=== PATIENT | female | born 1965 | race African-American/Black ===

== ENCOUNTER 2018-02-23 10:06 | Emergency (ER) | payer BC ==
[2018-02-23] MEDS ORDERED: Acetaminophen 500 MG TAB ONE (11:06)
[2018-02-23] MEDS ORDERED: diphenhydrAMINE 50 MG/ML VIAL ONE (11:06)
[2018-02-23 11:07] LABS: Hemoglobin 13.5 g/dL (12.0-16.0); Mean Corpuscular HGB CONC 32.1 g/dL (32.0-36.0); Mean Corpuscular Hemoglobin 27.2 pg (27.0-31.0); Mean Corpuscular Volume 84.8 fl (81.0-99.0); Mean Platelet Volume 7.8 fL (7.4-10.4); Platelet Count 283 thou/uL (130-400); RBC Distribution Width 13.3 % (11.5-14.5); Red Blood Cell (RBC) Count 4.94 mill/uL (4.20-5.40); White Blood Cell (WBC) Count 8.8 thou/uL (4.8-10.8)
[2018-02-23] MEDS ORDERED: Metoclopramide HCl 10 MG/2 ML VIAL ONE (11:11)
--- NOTE | 2018-02-23 11:27 | CT ---
CT HEAD WITHOUT CONTRAST: 02/23/2018 HISTORY: Pain. TECHNIQUE: Serial axial CT imaging is obtained at 5 mm intervals, from the vertex through the skull base, withou t contrast. FINDINGS: There is a probable old fracture of the right medial orbital wall. There is no displaced calvarial f racture seen. No intracranial hemorrhage, midline shift, mass effect, or ventricular enlargement. IMPRESSION: No acute findings. POS: JO[facility]
[2018-02-23 11:28] LABS: ALT (SGPT) 22 U/L (8-55); AST (SGOT) 19 U/L (5-34); Albumin 4.1 g/dL (3.5-5.0); Alkaline Phosphatase 98 U/L (40-150); Anion Gap 11 mmol/L (10-20); BUN (Urea Nitrogen) 10 mg/dL (9.8-20.1); Bilirubin, Total 0.5 mg/dL (0.2-1.2); Calc. Creatinine Clearance 0 mL/min (70-130); Calcium 9.6 mg/dL (7.8-10.44); Carbon Dioxide 24 mmol/L (22-29); Chloride 108 mmol/L (98-107); Estimated GFR-MDRD Greater than 90; Globulin 3.6 g/dL (2.4-3.5); Glucose 93 mg/dL (70-105); Potassium 4.1 mmol/L (3.5-5.1); Protein, Total 7.7 g/dL (6.0-8.3); Sodium 139 mmol/L (136-145)
[2018-02-23 11:33] LABS: Band 1 % (5-11); Lymphocytes 30 % (21-51); MDiff Complete? YES; Monocytes 2 % (0-10); Neutrophil 66 % (42-75); PLT Morphology Comment Appears Adequate; Reactive Lymphocytes 1 % (0-10); Target Cells SLIGHT = 2-5 cells (100X) (0-1/hpf)
[2018-02-23] MEDS ORDERED: Ketorolac Tromethamine 30 MG/ML VIAL ONE (11:59)
[2018-02-23 13:45] LABS: Bilirubin Negative (Negative); Blood, Urine Negative (Negative); Clarity CLEAR (Clear); Glucose, Urine (Dipstick) Negative (Negative); Leukocyte Negative (Negative); Nitrite Negative (Negative); Protein, Urine (Dipstick) Negative (Neg-Trace); Specific Gravity, Urine 1.013 (1.002-1.036)
== END 2018-02-23 13:34 | disposition home or self-care (01) ==
LOC: ERS 10:06
DX: R51 Headache (principal); I10 Essential (primary) hypertension; F17.210 Nicotine dependence, cigarettes, uncomplicated; Z71.6 Tobacco abuse counseling
CPT/HCPCS: 36415; 70450; 80053; 81003; 85025; 96365; 96375; 99406; J1200; J1885; J2765

== ENCOUNTER 2019-03-13 08:05 | Emergency (ER) | payer BC, SELFPAY ==
--- NOTE | 2019-03-13 08:37 | RAD ---
XR Chest Pa Lat STANDARD HISTORY: Chest pain COMPARISON: 12/23/2016 FINDINGS: The heart size is normal. The aorta is tortuous. The lungs are well expanded without focal areas of consolidation, pneumothoraces or pleural effusions. No acute osseous abnormalities are seen. IMPRESSION: No radiographic evidence of acute cardiopulmonary process.
[2019-03-13 09:09] LABS: Mean Corpuscular HGB CONC 31.9 g/dL (32.0-36.0); Mean Corpuscular Hemoglobin 27.2 pg (27.0-31.0); Mean Corpuscular Volume 85.3 fL (78.0-98.0); Mean Platelet Volume 8.2 fL (7.4-10.4); Platelet Count 256 thou/uL (130-400); RBC Distribution Width 13.4 % (11.5-14.5); Red Blood Cell (RBC) Count 4.79 mill/uL (4.20-5.40); White Blood Cell (WBC) Count 7.3 thou/uL (4.8-10.8)
[2019-03-13 09:19] LABS: Band 1 % (5-11); Eosinophils 3 % (0-10); Lymphocytes 37 % (21-51); MDiff Complete? YES; Monocytes 6 % (0-10); Neutrophil 53 % (42-75); Platelet Morphology Comment Appears Adequate; Polychromasia SLIGHT = 2-3 cells (100X) (0-2/hpf)
[2019-03-13] MEDS ORDERED: Amlodipine 5 MG TAB ONE (09:22)
[2019-03-13 09:23] LABS: ALT (SGPT) 21 U/L (8-55); AST (SGOT) 18 U/L (5-34); Albumin 3.8 g/dL (3.5-5.0); Alkaline Phosphatase 103 U/L (40-150); Anion Gap 11 mmol/L (10-20); BUN (Urea Nitrogen) 10 mg/dL (9.8-20.1); Bilirubin, Total 0.3 mg/dL (0.2-1.2); Calc. Creatinine Clearance 0 mL/min (70-130); Calcium 8.8 mg/dL (7.8-10.44); Carbon Dioxide 24 mmol/L (22-29); Chloride 109 mmol/L (98-107); Estimated GFR-MDRD Greater than 90; Globulin 2.8 g/dL (2.4-3.5); Glucose 94 mg/dL (70-105); Potassium 3.9 mmol/L (3.5-5.1); Protein, Total 6.6 g/dL (6.0-8.3); Sodium 140 mmol/L (136-145)
[2019-03-13 11:01] LABS: Bilirubin Negative (Negative); Blood, Urine Negative (Negative); Clarity CLOUDY (Clear); Glucose, Urine (Dipstick) Negative (Negative); Leukocyte Negative (Negative); Nitrite Negative (Negative); Protein, Urine (Dipstick) Negative (Neg-Trace); Specific Gravity, Urine 1.013 (1.002-1.036); pH, Urine 6.5 (5.0-9.0)
[2019-03-13] MEDS ORDERED: Ketorolac Tromethamine 30 MG/ML VIAL ONE (11:30)
== END 2019-03-13 11:48 | disposition home or self-care (01) ==
LOC: ERS 08:05
DX: I10 Essential (primary) hypertension (principal); F17.210 Nicotine dependence, cigarettes, uncomplicated
CPT/HCPCS: 36415; 71046; 80053; 81003; 84484; 85025; 93005; 96374; J1885

== ENCOUNTER 2019-05-18 10:36 | Outpatient (CLI) | payer OTHER ==
--- NOTE | 2019-05-18 11:08 | RAD ---
LUMBAR SPINE TWO VIEWS: HISTORY: Disability examination. TECHNIQUE: AP and lateral standing weightbearing views of the lumbar spine are performed. FINDINGS: Mild levoscoliosis. Generalized disk osteophytosis and facet arthrosis. Overall stable from prior s tudy. IMPRESSION: Lumbar spondylosis with mild levoscoliosis. POS: C
--- NOTE | 2019-05-18 11:09 | RAD ---
RADIOGRAPH RIGHT HIP TWO VIEWS: 05/18/2019 HISTORY: A 53-year-old female with right hip pain. Disability examination. FINDINGS: The right hip joint space is maintained. The femoral head contour is normal. No subcapital or aceta bular osteophytes. No destructive osseous lesion. No fracture. IMPRESSION: Normal. POS: [facility]
== END 2019-05-18 10:37 | disposition home or self-care (01) ==
LOC: BICRAD 10:36
PROVIDERS: ATTEND Internal Medicine
DX: Z02.71 Encounter for disability determination (principal); M47.816 Spondylosis without myelopathy or radiculopathy, lumbar region; M41.9 Scoliosis, unspecified
CPT/HCPCS: 72100

== ENCOUNTER 2020-01-17 09:44 | Emergency (ER) | payer SELFPAY ==
[2020-01-17] MEDS ORDERED: Metoclopramide HCl 10 MG/2 ML VIAL ONE (10:51)
[2020-01-17] MEDS ORDERED: Metoclopramide 10 MG/10 ML UDCUP ONE (10:51)
[2020-01-17] MEDS ORDERED: Ketorolac Tromethamine 30 MG/ML VIAL ONE (10:51)
== END 2020-01-17 13:05 | disposition home or self-care (01) ==
LOC: ERS 09:44
DX: R51 Headache (principal); I10 Essential (primary) hypertension; E11.9 Type 2 diabetes mellitus without complications; F17.210 Nicotine dependence, cigarettes, uncomplicated; F32.9 Major depressive disorder, single episode, unspecified; Z79.84 Long term (current) use of oral hypoglycemic drugs; Z79.899 Other long term (current) drug therapy
CPT/HCPCS: 36416; 96365; 96375; J1885; J2765

== ENCOUNTER 2021-03-09 14:10 | Observation (INO) | payer MEDICARE, SELFPAY ==
[2021-03-09] MEDS ORDERED: Ondansetron PF 4 MG/2 ML Vial ONE ×2 (14:37→15:42)
[2021-03-09] MEDS ORDERED: Iopamidol-370 76% 500 ML 1 ML ONE (14:47)
[2021-03-09 15:00] LABS: #Basophils 0.1 thou/uL (0.0-0.2); #Eosinphils 0.2 thou/uL (0.0-0.7); #Lymphocytes 5.2 thou/uL (1.20-3.40); #Monocytes 0.8 thou/uL (0.11-0.59); #Neutrophils 5.7 thou/uL (1.40-6.50); %Basophils 0.5 % (0.0-1.0); %Eosinophils 1.5 % (0.0-10.0); %Lymphocytes 43.5 % (21.0-51.0); %Monocytes 6.3 % (0.0-10.0); %Neutrophils 48.2 % (42.0-75.0); Mean Corpuscular HGB CONC 31.6 g/dL (32.0-36.0); Mean Corpuscular Hemoglobin 26.7 pg (27.0-31.0); Mean Corpuscular Volume 84.5 fL (78.0-98.0); Mean Platelet Volume 8.2 fL (7.4-10.4); Platelet Count 321 thou/uL (130-400); RBC Distribution Width 13.6 % (11.5-14.5); Red Blood Cell (RBC) Count 4.87 mill/uL (4.20-5.40); White Blood Cell (WBC) Count 11.8 thou/uL (4.8-10.8)
[2021-03-09 15:17] LABS: ALT (SGPT) 20 U/L (8-55); AST (SGOT) 18 U/L (5-34); Alkaline Phosphatase 122 U/L (40-110); Anion Gap 14 mmol/L (10-20); BUN (Urea Nitrogen) 9 mg/dL (9.8-20.1); Bilirubin, Total 0.5 mg/dL (0.2-1.2); Calc. Creatinine Clearance 0 mL/min (70-130); Carbon Dioxide 21 mmol/L (22-29); Chloride 109 mmol/L (98-107); Globulin 3.8 g/dL (2.4-3.5); Glucose 137 mg/dL (70-105); Potassium 3.4 mmol/L (3.5-5.1); Protein, Total 7.8 g/dL (6.0-8.3); Sodium 141 mmol/L (136-145)
[2021-03-09] MEDS ORDERED: Magnesium 2 GM/50 ML BAG (IN WATER) ONE (15:39)
[2021-03-09] MEDS ORDERED: Ketorolac Tromethamine 30 MG/ML VIAL ONE (15:39)
[2021-03-09] MEDS ORDERED: Prochlorperazine Maleate 5 MG TAB ONE (15:39)
[2021-03-09 15:48] LABS: Bilirubin Negative (Negative); Blood, Urine Negative (Negative); Clarity Clear (Clear); Glucose, Urine (Dipstick) Normal (Negative); Ketone, Urine Negative (Negative); Leukocyte Negative Leu/uL (Negative); Nitrite Negative (Negative); Protein, Urine (Dipstick) Negative (Neg-Trace); Urobilinogen Normal mg/dL (Less than 2); pH, Urine 6.5 (5.0-9.0)
[2021-03-09 15:50] LABS: Specific Gravity, Urine 1.052 (1.002-1.036)
[2021-03-09 15:53] LABS: Amphetamine Not Detected (NotDetected); Barbiturates Screen Not Detected (NotDetected); Benzodiazepine Screen Not Detected (NotDetected); Cocaine Metabolite Screen Not Detected (NotDetected); Medtox Control Line Valid? VALID (VALID); Medtox Reader # READER 4; Methadone Not Detected (NotDetected); Methamphetamine Not Detected (NotDetected); Opiate Screen Not Detected (NotDetected); Oxycodone Screen Not Detected (NotDetected); Phencyclidine (PCP) Not Detected (NotDetected); THC/Cannabinoid Screen Detected (NotDetected); Tricyclic Screen Not Detected (NotDetected)
[2021-03-09] MEDS ORDERED: Prochlorperazine 10 MG/2 ML VIAL IVP PRN (15:53)
[2021-03-09 15:58] LABS: Acetaminophen Less than 6.0 mcg/mL (10.0-30.0); Alcohol Less than 10 mg/dL (Less than 10); Salicylate Less than 8.0 mg/dL (15.0-30.0)
[2021-03-09 16:00] LABS: Actual Bicarbonate (HCO3v) 19 mEq/L (22-28); Analyzer IN Cardio ER; Base Excess -6.3 mEq/L (-2.0 to +3.0); Calcium, Ionized (venous) 1.16 mmol/L (1.16-1.32); Chloride (VBG) 111 mmol/L (98-106); Hemoglobin (Hb) 14.1 g/dL (11.7-16.0); Potassium (VBG) 3.47 mmol/L (3.70-5.30); Sodium 140.7 mmol/L (133-146); pH (venous) 7.34 (7.32-7.43)
[2021-03-09 16:02] LABS: Troponin I Less than 0.010 ng/mL (< 0.028)
[2021-03-09] MEDS ORDERED: Ondansetron ODT 4 MG TAB PO PRN (17:22)
[2021-03-09] MEDS ORDERED: Promethazine HCl 12.5 MG in Sodium Chloride 0.9% 50 ML IVPB SCH (17:30)
[2021-03-09] MEDS ORDERED: Ketorolac Tromethamine 30 MG/ML VIAL IVP SCH (17:30)
[2021-03-09] MEDS ORDERED: Potassium Chloride 20 MEQ TAB PO SCH (17:45)
[2021-03-09 17:52] LABS: Hemoglobin A1c 5.6 % (4.0-6.0)
[2021-03-09] MEDS: Lactated Ringer's 1,000 ML IV SCH (20:42)
[2021-03-09 22:55] VITALS: BMI 33.9
[2021-03-10] MEDS: Lactated Ringer's 1,000 ML IV SCH ×2 (04:10→06:05)
[2021-03-10 05:05] LABS: SARS-CoV-2 PCR by NAA Not Detected (NotDetected)
[2021-03-10 06:49] LABS: Hemoglobin 11.7 g/dL (12.0-16.0); Mean Corpuscular HGB CONC 32.2 g/dL (32.0-36.0); Mean Corpuscular Hemoglobin 27.3 pg (27.0-31.0); Mean Corpuscular Volume 84.7 fL (78.0-98.0); Mean Platelet Volume 8.1 fL (7.4-10.4); Platelet Count 276 thou/uL (130-400); RBC Distribution Width 13.6 % (11.5-14.5); Red Blood Cell (RBC) Count 4.28 mill/uL (4.20-5.40); White Blood Cell (WBC) Count 10.4 thou/uL (4.8-10.8)
[2021-03-10 07:05] LABS: Anion Gap 12 mmol/L (10-20); BUN (Urea Nitrogen) 8 mg/dL (9.8-20.1); Calc. Creatinine Clearance 159 mL/min (70-130); Calcium 8.3 mg/dL (7.8-10.44); Carbon Dioxide 22 mmol/L (22-29); Chloride 110 mmol/L (98-107); Glucose 96 mg/dL (70-105); Potassium 4.1 mmol/L (3.5-5.1); Sodium 140 mmol/L (136-145)
[2021-03-10] MEDS ORDERED: metFORMIN 500 MG TAB PO SCH (08:00)
[2021-03-10] MEDS ORDERED: Amlodipine 10 MG TAB PO SCH (09:00)
[2021-03-10] MEDS ORDERED: Atorvastatin Calcium 20 MG TAB PO SCH (09:00)
[2021-03-10 09:43] LABS: Band 1 % (5-11); Eosinophils 2 % (0-10); Lymphocytes 30 % (21-51); MDiff Complete? YES; Monocytes 5 % (0-10); Neutrophil 62 % (42-75)
[2021-03-10] MEDS ORDERED: SUMAtriptan Succinate 25 MG TAB PO SCH (11:00)
[2021-03-10 11:52] VITALS: BP 146/82; TEMP 98.1
== END 2021-03-10 13:45 | disposition home or self-care (01) ==
LOC: ERS 14:10 → T4-A 19:07
PROVIDERS: ADMIT Student in an Organized Health Care Education/Training Program; ATTEND Student in an Organized Health Care Education/Training Program
DX: G43.909 Migraine, unspecified, not intractable, without status migrainosus (principal); F12.10 Cannabis abuse, uncomplicated; G93.49 Other encephalopathy; R10.9 Unspecified abdominal pain; R73.03 Prediabetes; E78.5 Hyperlipidemia, unspecified; I10 Essential (primary) hypertension; F17.210 Nicotine dependence, cigarettes, uncomplicated; K42.9 Umbilical hernia without obstruction or gangrene; Z79.84 Long term (current) use of oral hypoglycemic drugs; Z79.899 Other long term (current) drug therapy; Z20.822 Contact with and (suspected) exposure to COVID-19
CPT/HCPCS: 70450; 71045; 74177; 80048; 80053; 80306; 80307; 81003; 82805; 82962 ×2; 83036; 83605; 84484; 85025 ×2; 87040; 93005; G0378 ×3; U0003; U0005; 36415; 36416; 51701; 87635; 96365; 96375; J0780; J1885; J2405; J2550; J3475; Q0164; Q9967

== ENCOUNTER 2021-12-14 18:28 | Emergency (ER) | payer MEDICARE ==
[2021-12-14] MEDS ORDERED: Acetaminophen 500 MG TAB ONE (19:29)
[2021-12-15 13:18] LABS: SARS-CoV-2 PCR by NAA DETECTED (NotDetected)
== END 2021-12-14 20:30 | disposition left against medical advice (07) ==
LOC: ERS 18:28
DX: Z53.21 Procedure and treatment not carried out due to patient leaving prior to being seen by health care provider (principal)
CPT/HCPCS: U0003; U0005